=== PATIENT | male | born 1990 | race Caucasian/White ===

== ENCOUNTER 2016-11-22 09:30 | Emergency (ER) | payer OTHER ==
[2016-11-22 09:44] VITALS: BP 124/67
--- NOTE | 2016-11-22 10:01 | EDM.PDOC ---
ED HPI Skin/Rash - General Chief Complaint: Skin Complaint Stated Complaint: SKIN INFECTION ON ARM, FEVER Time Seen by Provider: 11/22/16 09:40 Source: Reports: Patient History Limitations: Reports: No limitations - History of Present Illness INITIAL COMMENTS - FREE TEXT/NARRATIVE: This 25 yo male patient reports to the ED with a 1 day history of an infection in his left forearm. The patient reports he woke up yesterday with pain and erythema in his forearm. The patient does not recall any skin punctures or injuries to the area. The patient reports he have been feeling weak due to fevers. The patient is working for the [employer] and has been seen by the Medic at [facility]. Symptom Onset Date: 11/21/16 Timing: Reports: still present Location, Skin: Reports: upper extremity, left Quality: Reports: Ache, Sharp Severity: moderate Known Identified Source: no Place of Occurrence: other Sick Contact: no Associated Symptoms: Reports: weakness (generalized body weakness) Similar Symptoms Previously: no Recent Medical Care: no - Related Data Allergies Allergy/AdvReac Type Severity Reaction Status Date / Time No Known Allergies Allergy Verified 11/22/16 09:58 Home Meds: Ambulatory Orders Medication Instructions Recorded Confirmed . [No Known Home Meds] 11/22/16 11/22/16 ED ROS GENERAL - Review of Systems Review Of Systems: ROS reveals no pertinent complaints other than HPI. ED EXAM, SKIN/RASH Exam: See Below Exam Limited By: No limitations General Appearance: alert, WD/WN, moderate distress Eye Exam: bilateral eye: EOMI, normal inspection, PERRL Ears: normal external exam, normal canal, hearing grossly normal, normal TMs Nose: normal inspection, normal mucosa, no blood Throat/Mouth: Normal inspection, Normal lips, Normal teeth, Normal gums, Normal oropharynx, Normal voice, No airway compromise Head: atraumatic, normocephalic Neck: normal inspection, supple, non-tender, full range of motion Respiratory/Chest: no respiratory distress, lungs clear, normal breath sounds, no accessory muscle use, chest non-tender Cardiovascular: normal peripheral pulses, regular rate, rhythm, no edema, no gallop, no JVD, no murmur, no rub GI/Abdominal: normal bowel sounds, soft, non tender, no organomegaly, no distention, no abnormal bruit, no mass (Male) Exam: Deferred Rectal (Males) Exam: Deferred Back Exam: normal inspection, full range of motion, NT Extremities: normal inspection, normal range of motion, non-tender, no pedal edema, normal capillary refill Neurological: alert, oriented, CN II-XII intact, normal cognition, normal gait, normal reflexes, no motor/sensory deficits Psychiatric: normal affect, normal mood Skin: Increased warmth Location, Skin: upper extremity, left Characteristics: erythematous, other (no fluctulance) Associated features: warmth, tenderness, swelling, induration Lymphatic: no adenopathy Course - Vital Signs Last Recorded V/S: Last Vital Signs Temp 37.1 C 11/22/16 09:43 Pulse 87 11/22/16 09:43 Resp 16 11/22/16 09:43 BP 124/67 11/22/16 09:43 Pulse Ox 100 11/22/16 09:43 - Orders/Labs/Meds Orders: Active Orders 24 hr Category Date Time Status CULTURE BLOOD [BC] Stat Lab 11/22/16 09:55 Received Labs: Laboratory Tests 11/22/16 11/22/16 11/22/16 Range/Units 09:55 09:55 09:55 WBC 9.7 (5.0-10.0) 10^3/uL RBC 4.74 (4.6-6.2) 10^6/uL Hgb 14.7 (14.0-18.0) g/dL Hct 40.7 (40.0-54.0) % MCV 85.9 (80-100) fL MCH 31.0 (27.0-34.0) pg MCHC 36.1 H (33.0-35.0) g/dL Plt Count 162 (150-450) 10^3/uL Neut % (Auto) 79.4 H (42.2-75.2) % Lymph % (Auto) 10.1 L (20.5-50.1) % [place] % (Auto) 10.2 H (2-8) % Eos % (Auto) 0.1 L (1.0-3.0) % Baso % (Auto) 0.2 (0.0-1.0) % Sodium 131 L (135-145) mmol/L Potassium 4.0 (3.6-5.0) mmol/L Chloride 99 L (101-111) mmol/L Carbon Dioxide 25.0 (21.0-31.0) mmol/L Anion Gap 11.0 BUN 17 (7-18) mg/dL Creatinine 1.4 H (0.6-1.3) mg/dL Est Cr Clr Drug Dosing 91.16 mL/min Estimated GFR (MDRD) > 60 BUN/Creatinine Ratio 12.14 Glucose 120 H (74-105) mg/dL Lactic Acid 0.7 (0.5-2.2) mmol/L Calcium 8.7 (8.4-10.2) mg/dl Total Bilirubin 1.4 H (0.2-1.0) mg/dL AST 24 (10-42) IU/L ALT 21 (10-60) IU/L Alkaline Phosphatase 64 (42-121) IU/L Total Protein 7.0 (6.7-8.2) g/dl Albumin 4.4 (3.2-5.5) g/dl Globulin 2.6 Albumin/Globulin Ratio 1.69 Departure - Departure Time of Disposition: 10:38 Disposition: Home, Self-Care 01 Condition: fair Clinical Impression: Cellulitis Qualifiers: Site of cellulitis: extremity Site of cellulitis of extremity: upper extremity Laterality: left Qualified Code(s): L03.114 - Cellulitis of left upper limb Instructions: Cellulitis, Adult Forms: ED Department Discharge Care Plan Goals: The patient was advised of the examination and lab results during the visit. The patient was given a script for Keflex (500 mg) to take 1 by mouth 4 times per day for 10 days and Bactrim DS to take 1 by mouth 2 times per day for 10 days. If the patient has any additional symptoms or concerns, the patient should follow-up with his primary care facility or return to the emergency department. - My Orders Last 24 Hours: My Active Orders 11/22/16 09:55 CULTURE BLOOD [BC] Stat - Assessment/Plan Last 24 Hours: My Active Orders 11/22/16 09:55 CULTURE BLOOD [BC] Stat
[2016-11-22 10:25] LABS: CHLORIDE,CL 99 mmol/L (101-111); SODIUM,NA 131 mmol/L (135-145)
== END 2016-11-22 11:00 | disposition home or self-care (01) ==
LOC: DL.ED 09:30
DX: L03.114 Cellulitis of left upper limb (principal)
CPT/HCPCS: 36415; 80053; 83605; 85025; 87040; 99282